=== PATIENT | male | born 1985 | race Caucasian/White ===

== ENCOUNTER 2018-08-12 03:17 | Emergency (ER) | payer OTHER ==
[~2018-08-12] VITALS: Ht 180.3 cm; Wt 86.2 kg
[2018-08-12 03:23] VITALS: Ht 180.3 cm; Wt 86.2 kg
[2018-08-12 05:31] VITALS: BP 116/73
== END 2018-08-12 05:51 | disposition home or self-care (01) ==
LOC: ED 03:17
DX: R51 Headache (principal); I10 Essential (primary) hypertension; E11.9 Type 2 diabetes mellitus without complications
CPT/HCPCS: J1885; J2270